=== PATIENT | male | born 1975 | race Caucasian/White ===

== ENCOUNTER 2017-02-03 14:38 | Outpatient (CLI) | payer OTHER ==
--- NOTE | 2017-02-03 15:34 | ULT ---
ULTRASOUND WITH DOPPLER DUPLEX VENOUS LOWER EXTREMITY LEFT CPT: 35719 ICD-10-PCS: B54D HISTORY: Left leg edema. TECHNIQUE: Color flow Doppler, spectral waveform analysis of pulsed Doppler, and parker-scale imaging with trevor iftikhar and augmentation, were used to evaluate the bilateral common femoral, femoral, popliteal, radio aerial installer ior tibial, and superficial femoral, veins; and the proximal portions of the profunda femoral and gre ater saphenous, veins. FINDINGS: Appropriate compressibility and flow within the imaged deep vein system of the left lower extremity. There is an ovoid focus of decreased echogenicity at the medial aspect of the left popliteal fossa i ndicating a probable complex Valencia's cyst 3.5 cm in diameter. IMPRESSION: 1. No deep vein thrombosis. 2. 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 Recommend clinical correlation. As kt rivera, imaging followup may be obtained. POS: [facility] [place]
== END 2017-02-03 14:39 | disposition home or self-care (01) ==
LOC: SCSULT 14:38
PROVIDERS: ATTEND Orthopaedic Surgery
DX: M79.662 Pain in left lower leg (principal)